=== PATIENT | female | born 1995 | race Hispanic/Latino ===

== ENCOUNTER 2019-08-11 04:07 | Inpatient (IN) | payer OTHER, SELFPAY ==
[2019-08-11] MEDS ORDERED: Ringers Lactate 1,000 ML IV PRN (04:30)
[2019-08-11] MEDS ORDERED: METHYLERGONOVINE 0.2MG/ML AMP IM PRN (04:30)
[2019-08-11] MEDS ORDERED: PROMETHAZINE INJ 25 MG/ML AMP IM PRN (04:30)
[2019-08-11] MEDS ORDERED: BUTORPHANOL 1 MG/ML INJ IV PRN (04:30)
[2019-08-11] MEDS ORDERED: LIDOCAINE 1% MPF 30 ML VIAL SQ ONE (04:34)
[2019-08-11] MEDS ORDERED: Ringers Lactate 1,000 ML IV SCH (05:00)
[2019-08-11 05:27] VITALS: BMI 33.5
[2019-08-11 05:55] LABS: Urine Appearance CLOUDY; Urine Bilirubin NEGATIVE (NEG); Urine Blood TRACE (NEG); Urine Color YELLOW; Urine Glucose NEGATIVE (NEG); Urine Protein NEGATIVE (NEG); Urine Urobilinogen 0.2 mg/dL (0.2-1.0)
[2019-08-11 05:57] LABS: Absolute Lymphocytes (CBC) 2.8 K/uL (0.7-4.9); Basophils % 0.4 % (0-1.3); Hematocrit 37.3 % (36.0-45.0); Lymphocytes % 35.7 % (15.3-44.8); MPV 9.7 fL (7.6-11.3); RBC Red Blood Cell Count 4.33 M/uL (3.86-4.86); Urine Microscopic Reflex ORDER UMIC
[2019-08-11 06:05] LABS: Urine Bacteria 20-50 /HPF (<20); Urine Culture Reflex Order REFLEXED; Urine RBC <5 /HPF (NONE SEEN)
[2019-08-11] MEDS ORDERED: OXYTOCIN/LR 20 UNIT/1,000 ML BAG IV ONE (06:23)
--- NOTE | 2019-08-11 06:39 | PREOPHP ---
Date of Admission: 08/11/2019 A 24-year-old 3, para 1, 38 weeks 6 days, scheduled for induction tomorrow. Came in, in acti ve labor, 5 cm on admission, has now progressed to 7-8 cm, 100% effaced, 0 station, rupture of membra oswaldo, very light meconium. This is discussed with the family. We will prepare for delivery. She is Rh positive, immune to Rubella. Negative beta strep screen. She has had 1 dose of Stadol thus far. She is using Lamaze techniques and doing quite well. KEITH/MODL Voice ID: [id number]
--- NOTE | 2019-08-11 06:57 | PN ---
Rosemary Kwong with rupture of membranes, very light meconium noted. Scalp electrode placed. B devyn seems to be doing quite well. Moved around quite a bit when scalp electrode was placed. Still h as good variability. No major decelerations. If patient continues to make progress, we will not hav e Pitocin, if she does not make progress and we will add some Pitocin, but right now, we are monitori ng. KATELYNC/MODL Voice ID: [id number] Report ID: [id number]
[2019-08-11] MEDS ORDERED: CARBOPROST TROME 250 MCG/ML IM ONE (06:59)
[2019-08-11] MEDS ORDERED: OXYTOCIN/LR 20 UNIT/1,000 ML BAG IV SCH ×2 (07:00→08:00)
[2019-08-11] MEDS ORDERED: LIDOCAINE 1% MPF 30 ML VIAL ONE (07:18)
[2019-08-11] MEDS ORDERED: Oxycodone HCl/Acetaminophen 1 TAB TAB PO PRN ×2 (07:30)
[2019-08-11] MEDS ORDERED: ACETAMINOPHEN 500 MG TAB PO PRN (07:30)
[2019-08-11] MEDS ORDERED: IBUPROFEN 600 MG TAB PO PRN (07:30)
[2019-08-11] MEDS ORDERED: DOCUSATE NA/SENNA CONC 1 TAB PO PRN (07:30)
[2019-08-11] MEDS ORDERED: BISACODYL 10 MG RECTAL SUPP RECT PRN (07:30)
[2019-08-11] MEDS ORDERED: DIPHENHYDRAMINE 25 MG TAB/CAP PO PRN (07:30)
[2019-08-11] MEDS: METHYLERGONOVINE 0.2 MG TAB PO SCH ×3 (12:00→20:30)
[2019-08-12] MEDS: METHYLERGONOVINE 0.2 MG TAB PO SCH (00:33)
[2019-08-12 07:23] VITALS: BP 114/64; TEMP 96.8
[2019-08-12] MEDS ORDERED: INFLUENZA VACCINE (for 3y+) 0.5 ML DOSE IMVAC ONE (07:38)
[2019-08-12] MEDS ORDERED: Tdap (Diph,Pertuss(Acell),Tet Vac) 0.5 ML SYR IMVAC ONE (07:38)
--- NOTE | 2019-08-12 12:06 | DS ---
Date of Discharge: 08/12/2019 3, para 1, 38 weeks 6 days, came in active rapidly advancing labor. Subsequently, had a 6 po und, 12 ounce female. Apgars 9 and 9, very light meconium. Thorough suctioning of nares and orophar ynx prior to delivery of the body. No suspicion of aspiration. Very small first-degree laceration, small hematoma, 2 stitches [id number] 2-0 chromic under local infiltration. Schultze delivery o f the placenta, and estimated blood loss 350 mL. Rh positive, immune to Rubella, Rubella negative be ta strep screen. Patient had Stadol IV, otherwise use Lamaze breathing techniques to best advantage. , apparently blood loss estimated at the time of delivery according to nurses' was in exc ess of 500 cc and during the next few hours in excess of 225 cc. I totally disagree with this estima te as far as at the time of delivery. Patient was placed on Methergine. Her pulses have remained in the upper 40s, mid 50s. No change in blood pressure. Patient herself reports she does not think sh e has any significant bleeding, has been ambulating, completely asymptomatic. H and H with minimal c hange. I think she is quite stable. She will be dismissed later this morning, to report back to my office in 6 weeks for followup, to report any temperature elevation of 100 degrees or greater, severe pain, heavy bleeding, or any other type of abnormalities. Final Diagnoses: Intrauterine gestation, 38 weeks 6 days. Vaginal delivery. KEITH/DIONE Voice ID: [id number] Report ID: [id number]
[2019-08-12 22:30] LABS: RPR (Rapid Plasma Reagin) NON-REACT (NON-REACT)
[2019-08-13 02:12] LABS: HBsAG Nonreactive (Nonreactive)
--- NOTE | 2019-08-18 11:16 | OP ---
Surgeon: Rusty Merrill MD This is a 3, para 1, 38 weeks 6 days, came in active labor, 5 cm on admission. He used Lamaz e breathing techniques to best advantage. Went rapidly to complete. Short second stage, delivery of a 6 pound, 12 ounce female. Apgars 9 and 9. No suspicion of very light meconium which was noted wi th initial rupture of membranes. Very small first-degree laceration, more of a hematoma, 2 figure-of -eight stitches with 2-0 chromic under local infiltration. Schultze delivery of the placenta. Estim ated blood loss 350 mL. Rh positive, immune to Rubella. Negative beta strep screen. Tolerated all procedures well. Final Diagnosis: At time of delivery term intrauterine , vaginal delivery. KEITH/DIONE Voice ID: [id number] Report ID: [id number]
== END 2019-08-12 09:30 | disposition home or self-care (01) | DRG 806 ==
LOC: L&D 04:07 → 2ND-WC 04:36
PROVIDERS: ADMIT Specialist; ATTEND Specialist
PROC: 10907ZC Drainage of Amniotic Fluid, Therapeutic from Products of Conception, Via Natural or Artificial Opening (ICD-10-PCS; principal; 2019-08-11)
PROC: 10E0XZZ Delivery of Products of Conception, External Approach (ICD-10-PCS; 2019-08-11)
PROC: 0HQ9XZZ Repair Perineum Skin, External Approach (ICD-10-PCS; 2019-08-11)
DX: O70.0 First degree perineal laceration during delivery (principal); O71.7 Obstetric hematoma of pelvis; Z37.0 Single live birth; Z3A.38 38 weeks gestation of pregnancy
CPT/HCPCS: 36415; 81003; 81015; 85014; 85025; 86592; 86850; 86900; 86901; 87086; 87088; 87340; 90471; 90715; J0595; J2210; J2550; J2590; J7120; Q2035